=== PATIENT | male | born 2000 | race African-American/Black ===

== ENCOUNTER 2023-06-18 13:37 | Emergency (ER) | payer SELFPAY ==
[2023-06-18] MEDS ORDERED: Lidocaine 1% PF 5 ML VIAL ONE (14:12)
== END 2023-06-18 14:43 | disposition home or self-care (01) ==
LOC: MADERS 13:37
DX: S60.351A Superficial foreign body of right thumb, initial encounter (principal); L03.011 Cellulitis of right finger; F17.210 Nicotine dependence, cigarettes, uncomplicated; W45.8XXA Other foreign body or object entering through skin, initial encounter
CPT/HCPCS: 26011